=== PATIENT | male | born 1945 | race African-American/Black ===

== ENCOUNTER → 2016-09-04 | Outpatient (CLI) | payer OTHER ==
[~2016-09-04] MED LIST: ACETAMINOPHEN650 M1 PO; BAYER ASPIRIN325 M1 PO; DULERA 200 MCG/13 GM INH; GARLIC OIL1 CAP PO; GLUCOSAMINE-CH480 ML PO; METOPROLOL SUCC25 MG PO; PENICILLIN PO; PROAIR RESPICL90 MCG; VITAMIN E400 UNI2 PO
--- NOTE | ~2016-09-04 | CT57 ---
[facility] A Service of [facility] & [facility] RADIOLOGY TEXT RESULTS PATIENT: AUBREE CARBAJAL [facility] UN[facility] #: [id number] AGE: [address]: Adan Barton MD SEX: M ORDER DR: [id number] [facility] [address] [place], [place] [address] [id number] O MR#: [id number] Acc #: [id number] NAME: AUBREE CARBAJAL : 1945 SEX: M STUDY DATE/TIME: 09/04/2016 11:01 UNIT: [facility] ROOM: STUDY DESCRIPTION: CT Chest Wo Cont Attending Physician: Adan Barton M.D. Referring Physician: Iram Bowens A.P.R.N. Ordering Physician: Adan Barton M.D. Primary Care Physician: No Primary Care Physician MEDICAL IMAGING REPORT This report is preliminary unless electronic signature is present EXAM CT chest high-resolution protocol. HISTORY 71-year-old male pleural effusion, abnormal PFTs , pneumonia June 2016, follow up pneumonia. COMPARISON CT chest, 06/11/2016. TECHNIQUE Thin section axial images performed through the chest to include prone and supine high-resolution imaging. This CT exam was performed with one or more of the following radiation dose reduction techniques: automatic exposure control, adjustment of mA and/or kV according to patient size, and iterative reconstruction. FINDINGS Examination demonstrates significant improvement in airspace opacity and consolidation left upper and left lower lobe. Only minimal peripheral opacity is seen in the inferior lingular segment of the left upper lobe. There is persistent peripheral parenchymal opacity in the left lung base abutting the pleural surface measuring about 5.8 cm transverse dimensions and about 2.5 cm in depth. This most likely represents area of atelectasis.. Underlying mass lesion is considered unlikely but recommend continued follow up to stability or resolution. Trace amount of left pleural fluid and left basilar pleural thickening but significant improvement in pleural effusion when compared to the June [address] Background pulmonary parenchyma suggests mild pulmonary hyperinflation and lucency, particularly the lung apices which may reflect mild emphysema. Small calcified granuloma periphery right upper lobe. Trachea and bronchi unremarkable. [facility]. [facility] A Service of [facility] & [facility] RADIOLOGY TEXT RESULTS PATIENT: AUBREE CARBAJAL LOCATION: [facility] : 49 UNIT #: [id number] AGE: [address]: Adan Barton MD SEX: M ORDER DR: There are calcified mediastinal and hilar nodes compatible with prior granulomatous disease. The suspected AP window lymph node noted on the June 2016 study appears resolved or much less prominent on today's exam. Borderline cardiomegaly. Minimal coronary artery atherosclerotic disease. Aorta and pulmonary vessels are unremarkable. Visualized upper abdomen reveals a densely calcified gallstone in the region of the gallbladder neck. This is unchanged from prior studies. Thoracic inlet unremarkable. IMPRESSION 1. Near complete resolution of the patient's left upper lobe and left lower lobe pneumonias, as well as near complete resolution of the patient's left pleural effusion. 2. Residual parenchymal opacity posteriorly in the left lung base, probably represents an area of residual atelectasis. Recommend continued follow up to confirm stability and/or resolution. There is some associated pleural thickening and probably a trace amount of pleural fluid. 3. Calcified mediastinal nodes compatible with prior granulomatous disease. 4. Densely calcified gallbladder neck stone, unchanged from prior studies. 5. Background parenchyma does suggest mild emphysematous change. Dictated by... Criselda Chen M.D. THIS IS AN ELECTRONICALLY VERIFIED REPORT Criselda Chen M.D. at 09/05/2016 3:58 PM GABRIELE/tamia TD: 09/05/2016 12:17 JOB #: [id number] MEDICAL IMAGING REPORT COPY
== END | disposition home or self-care (01) ==
LOC: CCAT 10:31
DX: J90 Pleural effusion, not elsewhere classified (principal); R94.2 Abnormal results of pulmonary function studies; R93.8 Abnormal findings on diagnostic imaging of other specified body structures; R91.8 Other nonspecific abnormal finding of lung field; J92.9 Pleural plaque without asbestos; I89.8 Other specified noninfective disorders of lymphatic vessels and lymph nodes; K80.20 Calculus of gallbladder without cholecystitis without obstruction
CPT/HCPCS: 71250

== ENCOUNTER → 2017-02-19 | Outpatient (CLI) | payer OTHER ==
--- NOTE | ~2017-02-19 | CT57 ---
[facility] A Service of [facility] & [facility] RADIOLOGY TEXT RESULTS PATIENT: AUBREE CARBAJAL LOCATION: [facility] : 49 UNIT #: [id number] AGE: [address]: Adan Barton MD SEX: M ORDER DR: [id number] [facility] [address] [place], [place] [address] [id number] O MR#: [id number] Acc #: [id number] NAME: AUBREE CARBAJAL : 1945 SEX: M STUDY DATE/TIME: 02/19/2017 9:54 UNIT: [facility] ROOM: STUDY DESCRIPTION: CT Chest Wo Cont Attending Physician: Adan Barton M.D. Referring Physician: Adan Barton M.D. Ordering Physician: Adan Barton M.D. Primary Care Physician: Aquilino Barajas M.D. MEDICAL IMAGING REPORT This report is preliminary unless electronic signature is present EXAM CT scan of the chest without contrast INDICATION Followup left base 6 cm area of density seen on chest CT 09/04/2016 which was felt to represent atelectasis. There is also comparison study from 06/11/2016. TECHNIQUE Axial 5 mm were obtained through the chest without IV contrast and sagittal and coronal reconstructions were generated. This CT exam was performed with one or more of the following radiation dose reduction techniques: automatic control, adjustment of mA and/or kV according to patient size, and iterative reconstruction. FINDINGS The right lung is clear. There is minimal atelectasis in the left base which is diminished as compared with the prior study. It now measures about 9 to 10 mm in thickness. Previously it was up to 2.5 cm in thickness. Has a curvilinear concave anterior margin. The aorta is normal in size and there is no adenopathy. The rest of the left lung is clear. Visualized portions of the upper abdomen show a large calcified object that may be a gallstone. It is adjacent to the gallbladder and it is about 2.3 cm in diameter appears unchanged from prior studies. IMPRESSION 1. The abnormal density in the left base has continued to diminish in size. Back in June of 2016 the patient had a large amount of atelectasis and pneumonia in this region and in September of 2015 there was a small amount of what appeared to be atelectasis present. That has decreased about 50% in volume and it is therefore I think clearly benign. It has concave anterior margins on this axial images. It had STS. [facility] A Service of [facility] & [facility] RADIOLOGY TEXT RESULTS PATIENT: AUBREE CARBAJAL LOCATION: [facility] : 49 UNIT #: [id number] AGE: [address]: Adan Barton MD SEX: M ORDER DR: an appearance typical of atelectasis. I am not sure any further followup imaging is needed but if any is desired, then I would wait at least 8-12 months. 2. Stable to 2.5 cm densely calcified object in the right upper quadrant at or adjacent to the gallbladder. Dictated by... Herberth Ch M.D. THIS IS AN ELECTRONICALLY VERIFIED REPORT Herberth Ch M.D. at 02/19/2017 2:41 PM ELVIRA/rose marie TD: 02/19/2017 13:14 JOB #: [id number] MEDICAL IMAGING REPORT Page 1 of 1 COPY
== END | disposition home or self-care (01) ==
LOC: CCAT 09:33
DX: R93.8 Abnormal findings on diagnostic imaging of other specified body structures (principal); J98.11 Atelectasis
CPT/HCPCS: 71250